=== PATIENT | female | born 1995 | race Caucasian/White ===

== ENCOUNTER 2016-11-07 12:51 | Emergency (ER) | payer OTHER, SELFPAY ==
[2016-11-07] MEDS ORDERED: Ketorolac Tromethamine 30 MG/ML VIAL ONE (13:18)
== END 2016-11-07 13:37 | disposition home or self-care (01) ==
LOC: MADERS 12:51
DX: K02.9 Dental caries, unspecified (principal); F41.9 Anxiety disorder, unspecified; J45.909 Unspecified asthma, uncomplicated; F17.210 Nicotine dependence, cigarettes, uncomplicated; Z79.899 Other long term (current) drug therapy; Z90.89 Acquired absence of other organs
CPT/HCPCS: 96372; J1885

== ENCOUNTER 2017-04-06 17:49 | Emergency (ER) | payer OTHER | END 2017-04-06 18:53 | disposition left against medical advice (07) | LOC: MADERS 17:49 | DX: R10.9 Unspecified abdominal pain (principal); J45.909 Unspecified asthma, uncomplicated; F41.9 Anxiety disorder, unspecified; F17.210 Nicotine dependence, cigarettes, uncomplicated | CPT/HCPCS: 99283 ==

== ENCOUNTER 2018-07-09 14:19 | Emergency (ER) | payer OTHER, SELFPAY ==
[2018-07-09 15:20] LABS: Bilirubin Negative (Negative); Blood, Urine Negative (Negative); Clarity Clear (Clear); Glucose, Urine (Dipstick) Negative (Negative); Leukocyte Negative (Negative); Nitrite Negative (Negative); Protein, Urine (Dipstick) Negative (Neg-Trace); Urobilinogen 0.2 mg/dL (0.2-1.0); pH, Urine 6.5 (5.0-9.0)
[2018-07-09 15:23] LABS: Pregnancy Test - Urine (BHCG) Negative (Negative); Pregu Control Background? CLEAR/WHITE (CLR/WHITE); Pregu Control Bar Appear? YES (CONTROL BAR)
[2018-07-09] MEDS ORDERED: traMADol HCl 50 MG TAB ONE (15:35)
[2018-07-09] MEDS ORDERED: Ondansetron ODT 4 MG TAB ONE (15:35)
== END 2018-07-09 16:30 | disposition home or self-care (01) ==
LOC: MADERS 14:19
DX: M54.5 Low back pain (principal); J45.909 Unspecified asthma, uncomplicated; F41.0 Panic disorder [episodic paroxysmal anxiety]; F17.210 Nicotine dependence, cigarettes, uncomplicated
CPT/HCPCS: 81003; 81025; 99283; Q0162

== ENCOUNTER 2019-04-01 08:12 | Emergency (ER) | payer OTHER, SELFPAY ==
[2019-04-01] MEDS ORDERED: Tetracaine 0.5% OPHTH SOLN/PF 4 ML BOT ONE (08:22)
[2019-04-01] MEDS ORDERED: HYDROcodone/Acetaminophen 5/325 mg Tablet ONE (08:40)
== END 2019-04-01 08:50 | disposition home or self-care (01) ==
LOC: MADERS 08:12
DX: S05.01XA Injury of conjunctiva and corneal abrasion without foreign body, right eye, initial encounter (principal); J45.909 Unspecified asthma, uncomplicated; F41.0 Panic disorder [episodic paroxysmal anxiety]; F17.210 Nicotine dependence, cigarettes, uncomplicated; W22.8XXA Striking against or struck by other objects, initial encounter
CPT/HCPCS: 99283

== ENCOUNTER 2020-04-02 16:58 | Emergency (ER) | payer SELFPAY ==
[2020-04-02] MEDS ORDERED: Sulfameth/Trimethoprim DS 800-160mg TAB ONE (17:38)
== END 2020-04-02 17:39 | disposition home or self-care (01) ==
LOC: MADERS 16:58
DX: L02.411 Cutaneous abscess of right axilla (principal); F41.9 Anxiety disorder, unspecified; F17.210 Nicotine dependence, cigarettes, uncomplicated; J45.909 Unspecified asthma, uncomplicated
CPT/HCPCS: 99282

== ENCOUNTER 2020-07-03 12:38 | Emergency (ER) | payer SELFPAY | END 2020-07-03 13:30 | disposition home or self-care (01) | LOC: MADERS 12:38 | DX: L03.211 Cellulitis of face (principal); F41.0 Panic disorder [episodic paroxysmal anxiety]; F17.210 Nicotine dependence, cigarettes, uncomplicated; J45.909 Unspecified asthma, uncomplicated | CPT/HCPCS: 99283 ==

== ENCOUNTER 2020-08-16 17:39 | Emergency (ER) | payer SELFPAY ==
[2020-08-16] MEDS ORDERED: cefTRIAXone\\ROCEPHIN 1 GM VIAL ONE (20:35)
[2020-08-16] MEDS ORDERED: Clindamycin 150 MG CAP ONE (20:35)
[2020-08-16] MEDS ORDERED: Lidocaine 1% 20 ML MDV ONE (20:35)
[2020-08-16] MEDS ORDERED: Bacitracin 1 PK ONE (20:50)
== END 2020-08-16 20:55 | disposition home or self-care (01) ==
LOC: MADERS 17:39
DX: L03.114 Cellulitis of left upper limb (principal); F41.9 Anxiety disorder, unspecified; J45.909 Unspecified asthma, uncomplicated; F17.210 Nicotine dependence, cigarettes, uncomplicated
CPT/HCPCS: 96372; 99406; J0696

== ENCOUNTER 2021-03-02 16:47 | Emergency (ER) | payer SELFPAY | END 2021-03-02 17:36 | disposition home or self-care (01) | LOC: MADERS 16:47 | DX: H00.015 Hordeolum externum left lower eyelid (principal); L03.213 Periorbital cellulitis; J45.909 Unspecified asthma, uncomplicated; F17.210 Nicotine dependence, cigarettes, uncomplicated | CPT/HCPCS: 99283 ==

== ENCOUNTER 2021-09-09 08:04 | Emergency (ER) | payer SELFPAY ==
[2021-09-09] MEDS ORDERED: Lidocaine 1% w/Epinephrine 1:100K 20 ML VIAL ONE (08:24)
[2021-09-09] MEDS ORDERED: Morphine 4 MG/ML VIAL ONE (08:24)
[2021-09-09] MEDS ORDERED: Clindamycin 150 MG CAP ONE (08:27)
[2021-09-09] MEDS ORDERED: Bacitracin 1 PK ONE (08:54)
== END 2021-09-09 09:10 | disposition home or self-care (01) ==
LOC: MADERS 08:04
DX: L02.414 Cutaneous abscess of left upper limb (principal); L73.2 Hidradenitis suppurativa; J45.909 Unspecified asthma, uncomplicated; F17.210 Nicotine dependence, cigarettes, uncomplicated
CPT/HCPCS: 10060; 96372; J2270

== ENCOUNTER 2021-11-04 19:09 | Emergency (ER) | payer SELFPAY ==
[2021-11-04] MEDS ORDERED: Ondansetron ODT 4 MG TAB ONE (19:44)
== END 2021-11-04 19:51 | disposition home or self-care (01) ==
LOC: MADERS 19:09
DX: R11.2 Nausea with vomiting, unspecified (principal); R19.7 Diarrhea, unspecified; J45.909 Unspecified asthma, uncomplicated; F17.210 Nicotine dependence, cigarettes, uncomplicated
CPT/HCPCS: 99283; Q0162

== ENCOUNTER 2021-12-01 16:52 | Emergency (ER) | payer MEDICAID, SELFPAY | END 2021-12-01 18:35 | disposition home or self-care (01) | LOC: MADERS 16:52 | DX: J06.9 Acute upper respiratory infection, unspecified (principal); J45.909 Unspecified asthma, uncomplicated; F17.210 Nicotine dependence, cigarettes, uncomplicated | CPT/HCPCS: 87804; 99283 ==

== ENCOUNTER 2022-04-22 14:16 | Emergency (ER) | payer OTHER ==
[2022-04-22] MEDS ORDERED: Lidocaine 1% w/Epinephrine 1:100K 20 ML VIAL ONE (16:47)
[2022-04-22] MEDS ORDERED: cefTRIAXone\\ROCEPHIN 1 GM VIAL ONE (17:14)
[2022-04-22] MEDS ORDERED: Lidocaine 1% PF 5 ML VIAL ONE (17:14)
[2022-04-22] MEDS ORDERED: Sulfameth/Trimethoprim DS 800-160mg TAB ONE (17:14)
[2022-04-22] MEDS ORDERED: Amoxicillin/Potassium Clav 875 MG TAB ONE (17:14)
[2022-04-22] MEDS ORDERED: Ketorolac Tromethamine 60 MG/2 ML VIAL ONE (17:33)
== END 2022-04-22 17:40 | disposition home or self-care (01) ==
LOC: MADERS 14:16
DX: L02.215 Cutaneous abscess of perineum (principal); F17.210 Nicotine dependence, cigarettes, uncomplicated
CPT/HCPCS: 56405; 87070; 87077; 87186; 87205; 96372; J0696; J1885